=== PATIENT | male | born 1960 | race Caucasian/White ===

== ENCOUNTER 2018-07-14 18:18 | Emergency (ER) | payer OTHER ==
[~2018-07-14] VITALS: Ht 180.3 cm; Wt 115.5 kg
[~2018-07-14 18:18] MED LIST: /ESOM40CA OR; ACET65TA OR; ALBUTEROL INH; VENTAER INH; ZOCO40TA OR; aleve PO
[2018-07-14 18:19] VITALS: BP 141/84
[2018-07-14] MEDS ORDERED: VITA50005 PO (18:56)
[2018-07-14] MEDS ORDERED: NAPR-885 PO (18:56)
--- NOTE | 2018-07-14 18:59 | REP ---
Clinical: Trauma. Technique: Internal rotation, external rotation, and Y view of the left shoulder. Findings: Widening of the acromioclavicular joint appears relatively stable compared to the chest x-ray dated 2011. The subacromial space is normal. The glenohumeral joint is normal. There is no obvious acute fracture or dislocation. Surrounding soft tissues are unremarkable. Impression: No acute fracture or dislocation. Electronically Signed by Yonas Blankenship MD 07/14/2018 06:50 P
--- NOTE | 2018-07-14 19:00 | REP ---
Clinical: Left elbow trauma . Technique: AP, lateral, bilateral oblique views of the left elbow. Findings: No acute fracture or dislocation is appreciated. Joint spaces and surrounding soft tissues appear normal. Lateral view demonstrates normal positioning to the anterior and posterior fat pads without evidence for effusion/hemarthrosis. No subcutaneous emphysema or foreign body identified. Impression: Normal left elbow radiographs. Electronically Signed by Yonas Blankenship MD 07/14/2018 06:51 P
[2018-07-14] MEDS ORDERED: IBUP-1022 PO (19:42)
== END 2018-07-14 20:32 | disposition home or self-care (01) ==
LOC: M ED 18:18
DX: S50.02XA Contusion of left elbow, initial encounter (principal); W00.0XXA Fall on same level due to ice and snow, initial encounter; Y92.89 Other specified places as the place of occurrence of the external cause; Y99.0 Civilian activity done for income or pay; J45.909 Unspecified asthma, uncomplicated; Z79.899 Other long term (current) drug therapy; Z88.0 Allergy status to penicillin; Z88.8 Allergy status to other drugs, medicaments and biological substances

== ENCOUNTER 2018-10-19 09:05 | Emergency (ER) | payer OTHER ==
[~2018-10-19] VITALS: Ht 180.3 cm; Wt 110.2 kg
[~2018-10-19 09:05] MED LIST changes: -/ESOM40CA OR; +IBUP-1022 PO; +NAPR-885 PO; +NEXI1CAP3 OR; +VITA50005 PO
[2018-10-19] MEDS ORDERED: LISI-542 (09:19)
[2018-10-19] MEDS ORDERED: OMEP-221 (09:19)
[2018-10-19] MEDS ORDERED: PROP20TA72 (09:19)
[2018-10-19] MEDS ORDERED: SIMV20TA2 (09:19)
[2018-10-19] MEDS ORDERED: ONDANSETRON 4MG/2ML VIAL (J2405) IV ONE (10:00)
[2018-10-19] MEDS ORDERED: KETOROLAC 30 MG/ML VIAL (J1885) IV ONE (10:00)
[2018-10-19] MEDS ORDERED: NS 1,000 ML IV ONE (10:00)
[2018-10-19 10:02] LABS: BASO % 0.2 % (0.0-1.0); EOS # 0.1 10^3/uL (0.0-0.50); EOS % 0.8 % (0.0-3.0); HEMATOCRIT 43.9 % (42.0-52.0); HEMOGLOBIN 14.8 g/dl (13.5-17.5); LYMPH # 1.6 10^3/uL (1.5-4.5); LYMPH % 17.5 % (24.0-44.0); MEAN CORPUSCULAR HEMOGLOBIN 29.7 pg (27.0-33.0); MEAN CORPUSCULAR HGB CONC 33.7 g/dl (32.0-36.5); MONO # 0.5 10^3/uL (0.0-0.8); MONO % 5.8 % (0.0-5.0); NEUTROPHILS # 6.8 10^3/uL (1.8-7.7); NEUTROPHILS % 75.3 % (36.0-66.0); PLATELET COUNT, AUTOMATED 248 10^3/uL (150-450); RED BLOOD COUNT 4.99 10^6/uL (4.30-6.10)
[2018-10-19 10:31] LABS: ALBUMIN 3.7 GM/DL (3.2-5.2); ALT/SGPT 39 U/L (12-78); AMYLASE 27 U/L (25-115); BILIRUBIN,DIRECT < 0.1 MG/DL (0.0-0.2); BILIRUBIN,TOTAL 0.5 MG/DL (0.2-1.0); BLOOD UREA NITROGEN 12 MG/DL (7-18); CALCIUM LEVEL 9.2 MG/DL (8.5-10.1); CARBON DIOXIDE LEVEL 27 MEQ/L (21-32); CHLORIDE LEVEL 105 MEQ/L (98-107); CREATININE FOR GFR 0.92 MG/DL (0.70-1.30); GLOMERULAR FILTRATION RATE > 60.0 (>56); GLUCOSE, FASTING 115 MG/DL (70-100); LIPASE 93 U/L (73-393); POTASSIUM SERUM 4.4 MEQ/L (3.5-5.1); SODIUM LEVEL 139 MEQ/L (136-145)
[2018-10-19 10:55] LABS: CPK CREATINE PHOSPHOKINASE 288 U/L (39-308)
[2018-10-19 10:56] LABS: MB/CK RELATIVE INDEX 1.22 (< OR =4); TROPONIN I < 0.02 NG/ML (< 0.10)
--- NOTE | 2018-10-19 11:18 | REP ---
RIGHT UPPER QUADRANT ULTRASOUND: Real-time sonographic evaluation of the right upper quadrant performed. No gallstones are seen in the gallbladder. There is no gallbladder wall thickening or pericholecystic fluid. There is no intrahepatic or extrahepatic biliary dilatation, common bile duct measuring 5 mm. The liver demonstrates mild enlargement with diffuse increased heterogeneous echotexture compatible with diffuse fibrofatty infiltration. No gross liver or pancreatic mass is seen. The pancreas is not well seen due to overlying bowel gas. Right kidney demonstrates no hydronephrosis with normal size 12.4 cm in length. The length of the liver is approximately 21 cm in the midclavicular line. IMPRESSION: No gallstones, gallbladder wall thickening, pericholecystic fluid or biliary dilatation. Diffuse fibrofatty infiltration of the liver. Electronically Signed by Luiz Perez MD 10/24/2018 11:40 A
[2018-10-19 12:07] VITALS: BP 137/73
[2018-10-19] MEDS ORDERED: PROT20TA11 PO (12:08)
[2018-10-19] MEDS ORDERED: PEPC1TAB5 PO (12:08)
--- NOTE | 2018-10-19 12:12 | REP ---
CT ABDOMEN AND PELVIS WITHOUT CONTRAST: CT abdomen and pelvis performed without oral or IV contrast. Sagittal and coronal reconstruction images are performed. Visualized lung bases are clear. The liver demonstrates low density compatible with diffuse fatty infiltration. Spleen, adrenals, pancreas, and kidneys are grossly unremarkable. There is no evidence of renal or ureteral calculus bilaterally and no evidence of hydroureteronephrosis. There is mild atherosclerotic calcification of the abdominal aorta without aneurysm. There is no adenopathy. There is no free air or free fluid. I see no bowel wall thickening. There is no evidence of appendicitis. There is no pelvic mass. The urinary bladder is mildly distended and grossly unremarkable. IMPRESSION: No acute abnormality is detected. Electronically Signed by Luiz Perez MD 10/24/2018 11:40 A
--- NOTE | 2018-10-19 19:18 | ECGEPIP ---
Stationary ECG Study [facility] - ED Test Date: 2018-10-19 Pat Name: ASAD LARA Department: Room: - Gender: M [employer]: : 1960 Requested By: ARTI Hyman PA-C Order Number: [id number] Reading MD: Du Quezada Measurements Intervals [place] Rate: 58 P: 41 UT: 169 QRS: -28 QRSD: 80 T: 2 QT: 416 QTc: 412 Interpretive Statements SINUS BRADYCARDIA POSSIBLE LEFT ATRIAL ENLARGEMENT BORDERLINE LEFT AXIS DEVIATION INCOMPLETE RIGHT BUNDLE BRANCH BLOCK POSSIBLE LEFT VENTRICULAR HYPERTROPHY SIMILAR TO 10/16/11 Electronically Signed On 10-19-2018 19:18:22 EDT by Du Quezada
== END 2018-10-19 12:19 | disposition home or self-care (01) ==
LOC: M ED 09:05
DX: R10.13 Epigastric pain (principal); I45.10 Unspecified right bundle-branch block; K76.0 Fatty (change of) liver, not elsewhere classified; I10 Essential (primary) hypertension; K21.9 Gastro-esophageal reflux disease without esophagitis; M54.9 Dorsalgia, unspecified; J45.909 Unspecified asthma, uncomplicated; G25.0 Essential tremor; Z87.442 Personal history of urinary calculi; Z88.0 Allergy status to penicillin
CPT/HCPCS: 74176; 76705; 80048; 80076; 81001; 82150; 82550; 82553; 83690; 84484; 85025; 93005; 96361; 96374; 96375; 99284; J1885; J2405

== ENCOUNTER 2019-04-19 05:31 | Day surgery (SDC) | payer OTHER ==
[~2019-04-19] VITALS: Ht 208.3 cm; Wt 106.1 kg
[~2019-04-19 05:31] MED LIST changes: +LISI-542 PO; +OMEP-221 PO; +PEPC1TAB5 PO; +PROP20TA72 PO; +PROT20TA11 PO; +SIMV20TA2 PO
[2019-04-19] MEDS ORDERED: dexameTHASONE 10 MG/1 ML VIAL PRES.FREE (J1100) ONE (05:32)
[2019-04-19] MEDS ORDERED: ROPIvacaine 0.5% 30 ML INJECTION (J2795 PER 1MG) ONE (05:32)
[2019-04-19] MEDS ORDERED: EPINEPHrine INJ 1 MG/ML 1ML AMP ONE (05:32)
[2019-04-19] MEDS ORDERED: fentaNYL 100 MCG/2 ML INJECTION (J3010) IV SCH (06:00)
[2019-04-19] MEDS ORDERED: MIDAZOLAM INJ 2 MG/2 ML VIAL (J2250) As Ordered ONE (06:41)
[2019-04-19] MEDS ORDERED: fentaNYL 100 MCG/2 ML INJECTION (J3010) As Ordered ONE (06:41)
[2019-04-19] MEDS ORDERED: LIDOCAINE 1% SDV INJ 30 ML VIAL As Ordered ONE (06:55)
[2019-04-19] MEDS ORDERED: EPINEPHrine 1MG/ML INJ 30ML MD-VIAL As Ordered ONE (06:55)
[2019-04-19] MEDS ORDERED: LR 1,000 ML IV ONE (07:00)
[2019-04-19] MEDS ORDERED: CLINDAMYCIN 600 MG in IV 1 EA IV ONE (07:00)
[2019-04-19] MEDS ORDERED: ROCURONIUM BROMIDE 50 MG/5 ML VIAL As Ordered ONE (07:12)
[2019-04-19] MEDS ORDERED: LIDOCAINE 2% INJ 100 MG/5 ML SDV (FOR ANES.) As Ordered ONE (07:12)
[2019-04-19] MEDS ORDERED: PROPOFOL 200 MG/20 ML VIAL As Ordered ONE (07:12)
[2019-04-19] MEDS: MIDAZOLAM INJ 2 MG/2 ML VIAL (J2250) IV SCH ×2 (07:12→07:20)
[2019-04-19] MEDS ORDERED: fentaNYL 250 MCG/5 ML INJECTION (J3010) As Ordered ONE (07:12)
[2019-04-19] MEDS ORDERED: PHENYLephrine HCL 500 MCG/5 ML (100MCG/ML) SYRINGE (J2370) As Ordered ONE (08:01)
[2019-04-19] MEDS ORDERED: ePHEDrine SULFATE 25 MG/5 ML(5MG/ML) SYRINGE As Ordered ONE (08:05)
[2019-04-19] MEDS ORDERED: METOCLOPRAMIDE INJ 10MG/2ML VIAL (J2765) As Ordered ONE (08:06)
[2019-04-19] MEDS ORDERED: GLYCOPYRROLATE INJ 0.2 MG/ML 2 ML VIAL As Ordered ONE ×2 (08:19→09:20)
[2019-04-19] MEDS ORDERED: PHENYLEPHRINE INJ 10MG/ML VIAL (J2370) As Ordered ONE ×2 (08:42→08:44)
[2019-04-19] MEDS ORDERED: ONDANSETRON 4MG/2ML VIAL (J2405) As Ordered ONE ×2 (09:20→10:35)
[2019-04-19] MEDS ORDERED: NEOSTIGMINE 10 MG/10 ML VIAL (J2710) As Ordered ONE ×2 (09:20→09:21)
[2019-04-19] MEDS ORDERED: MORPHINE 4 MG/ML 1ML VIAL/SYRINGE (J2270) IV PRN (11:00)
[2019-04-19] MEDS ORDERED: METOCLOPRAMIDE INJ 10MG/2ML VIAL (J2765) IV PRN (11:00)
[2019-04-19] MEDS ORDERED: PERCOCET 5MG/325MG TAB PO PRN (11:00)
[2019-04-19] MEDS ORDERED: fentaNYL 100 MCG/2 ML INJECTION (J3010) IV PRN (11:00)
[2019-04-19] MEDS ORDERED: ONDANSETRON 4MG/2ML VIAL (J2405) IV PRN (11:00)
[2019-04-19] MEDS ORDERED: NORCO, ANEXSIA 5/325MG TABLET (HYDROcodone/ACETAMINOPHEN) PO PRN ×2 (11:00)
[2019-04-19] MEDS ORDERED: LR 1,000 ML IV SCH ×2 (11:00)
[2019-04-19 13:05] VITALS: BP 126/71
--- NOTE | 2019-04-19 14:28 | RO ---
DATE OF PROCEDURE: 04/19/2019 PREPROCEDURE DIAGNOSES: Left shoulder biceps subluxation, possible rotator cuff tear. POSTPROCEDURE DIAGNOSES: 1. Left shoulder rotator cuff tear, which is recurrent. 2. Left shoulder biceps subluxation. PROCEDURE: 1. Left shoulder arthroscopic revision rotator cuff repair using a SpeedBridge double row technique. 2. Left shoulder arthroscopic biceps tenotomy. 3. Left shoulder open Sub-pectoralis tenodesis of the biceps. SURGEON: Dr. Boogie Hernandez. GRADES 9 12 TUTOR: Mr. Freddie Preciado PA-C. ANESTHESIA: Left interscalene nerve block with a general endotracheal tube anesthetic. COMPLICATIONS: None. DESCRIPTION OF PROCEDURE: Antibiotics were given intravenously preoperatively and successful left interscalene nerve block was established. He was taken to the operating room where a general endotracheal tube anesthetic was then established. He was placed in the semi-beach chair position. The Venafi shoulder madden was utilized. His left shoulder was carefully prepped and draped in the usual sterile fashion. After appropriate time-out, routine diagnostic arthroscopy performed through a posterior portal. This revealed, in deed, that there appeared to be a rotator cuff tear above at the supraspinatus insertion. The biceps was flattened and clearly unstable. The subscapularis did appear to be intact and the preoperative holding area by examination. He had a negative liftoff test. But he had remarkably positive Speeds test. The rest of the rotator cuff intra-articularly appeared to be intact. The labrum was intact. The articular cartilage surfaces appeared to be intact. The biceps was tenotomized. I put a marking suture with O PDS suture using a spinal needle through the rotator cuff tear and pulled it out through the anterior working portal and placed the scope in the cervical medial space. We had excellent visualization. A bursectomy was performed. Debridement of the undersurface of the anterior lateral edge of the acromion or where the coracoacromial (CA) ligament attach was debrided and smoothed. Then the rotator cuff tear was readily identifiable. I denuded the rotator cuff insertion of the supraspinatus of any fibrillating soft tissues using a combination of the shaver a debrider device and the ring curet. Once I had adequate understanding of the nature and the anatomy of the rotator cuff tear, the 8.25 x 7 cm cannula was placed laterally and then we placed the first medial row anchor from the [employer] SpeedBridge kit and then docked the sutures anteriorly and passed the Swaged FiberTapes up through the rotator cuff out through the anterior working porthole and both of the eyelet sutures were passed as well more anteriorly. The posteromedial anchor was then placed and the Swaged on FiberTapes up through the rotator cuff, up through the anterior working portable and both of the eyelet sutures were passed as well more anteriorly. The posterior and medial anchor was then placed and the Swaged FiberTapes were passed up through the rotator cuff. The Swaged FiberTapes were released. Then one limb from the posteromedial anchor and one from the anterior medial anchor and one limb from the eyelet from the anterior anchor were passed out through the lateral cannula and loaded onto the first anterolateral row suture anchored, then the punch placed appropriately. The sutures were tensioned and the anchor dunked and secured providing excellent firm fixation. The sutures were cut short with the FiberTape cutter. The remaining three sutures were then grabbed out through the lateral portal. Punched hole placed appropriately. The sutures were loaded on the anchor then dunked into the hole and then secured thus providing excellent watertight closure of the rotator cuff with excellent secure fixation. Multiple photographs were taken to document this. We then made a small longitudinal incision in the anterior axillary fold. Bovie cautery was used to coagulate the crossing vessels. We identified the biceps tendon underneath the pectoralis tendon. Removed the biceps tendon and placed a Mitek suture anchor into the bicipital groove under direct visualization. I then sutured at the myotendinous junction one limb of the Mitek anchor suture and then cut the remaining portion of the tendon short and dunked the suture to the anchor and secured it with several alternating post half hitches. We copiously irrigated and closed the skin with a running #3-0 nylon suture. The arthroscopy portals were closed with #3-0 nylon sutures covered by Adaptic, dry sterile bulky dressings. He was placed in a abduction pillow brace and then awaked from general endotracheal anesthesia after having tolerating the procedure well and transferred to the recovery room in stable condition. There were no intraoperative complications. Mr. Freddie Preciado was critical to the success of this difficult surgery by helping with appropriate soft tissue retraction holding the scope, manipulating the sutures, closing the wound applying the brace amongst many other tasks to allow me to perform the operation smoothly, efficiency and safely.
== END 2019-04-19 13:05 | disposition home or self-care (01) ==
LOC: M SDC 05:31
PROVIDERS: ATTEND Orthopaedic Surgery
DX: S46.012A Strain of muscle(s) and tendon(s) of the rotator cuff of left shoulder, initial encounter (principal); M75.22 Bicipital tendinitis, left shoulder; I10 Essential (primary) hypertension; J45.909 Unspecified asthma, uncomplicated; E78.00 Pure hypercholesterolemia, unspecified; K21.9 Gastro-esophageal reflux disease without esophagitis; G47.30 Sleep apnea, unspecified; F43.10 Post-traumatic stress disorder, unspecified; Z79.899 Other long term (current) drug therapy; Z88.0 Allergy status to penicillin; Z88.8 Allergy status to other drugs, medicaments and biological substances; Y92.410 Unspecified street and highway as the place of occurrence of the external cause; Y93.9 Activity, unspecified
CPT/HCPCS: 23430; 29827; 64415; 88304; C1713; J1100; J2250; J2370; J2405; J2710; J2765; J2795; J3010

== ENCOUNTER → 2019-11-12 | Outpatient (CLI) | payer OTHER ==
[~2019-11-12] MED LIST changes: -SIMV20TA2 PO; +SIMV20TA22 PO
--- NOTE | 2019-11-13 11:35 | REP ---
REASON FOR EXAM: Malignant melanoma. There are no prior PET/CT for comparison. The only prior CT examination for review is dated 10/19/2018 and that examination is a noncontrast-enhanced examination of the abdomen and pelvis. The patient has a history of right inguinal sentinel lymph node excisional biopsy and right leg melanoma with wide local excision biopsy September 2019. After the intravenous administration of 8.89 millicuries of FDG18, triplane whole body PET/CT was performed from the skull base to the mid thigh. The non-corrected images whole body were also reviewed. There is no abnormal hypermetabolic activity seen in the neck, chest, abdomen or pelvis. The non-corrected images show a subtle focus of hypermetabolic activity seen in the skin left parasagittal location at the level of the xyphoid process of the sternum. This small focal area has an SUV value of 2.97 as a maximum. This is seen on both corrected and particularly, the non-corrected images. IMPRESSION: There is a hypermetabolic focus seen in the skin and/or subcutaneous region at the level of the xyphoid process of the sternum to the left of midline as described above. This needs to be evaluated clinically. Infectious versus inflammatory versus neoplastic change. Electronically Signed by Lul Logan DO 11/13/2019 12:24 P
== END ==
LOC: M PLARAD 11:43
PROVIDERS: ATTEND Family Medicine
DX: C49.21 Malignant neoplasm of connective and soft tissue of right lower limb, including hip (principal)
CPT/HCPCS: 78816; A9552

== ENCOUNTER → 2019-11-21 | Outpatient (CLI) | payer OTHER ==
[~2019-11-21] MED LIST changes: +PROHANCE 279.3MG/ML 15ML VIAL As Ordered ONE; +PROHANCE 279.3MG/ML 5ML VIAL As Ordered ONE
--- NOTE | 2019-11-21 10:20 | REP ---
MRI brain: 11/21/2019. Indication: Melanoma. Metastatic workup. Technique: Multiplanar short and long TR sequences of the brain were obtained including post gadolinium imaging. Comparison: 10/17/2011. Findings: There are no areas of restricted diffusion or pathologic gadolinium enhancement. There are a few foci of punctate elevated T2 signal within the cerebral hemisphere white matter which is nonspecific but likely represents early sequelae of chronic small vessel disease. There is no intracranial mass effect or hydrocephalous. No intracranial hemorrhage is present. The midline structures and craniocervical junction are unremarkable. The large intracranial flow voids are present. Left maxillary retention cyst is redemonstrated. Impression: No acute intracranial process or evidence of intracranial metastatic disease. 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 Left maxillary retention cyst. Electronically Signed by Ja Venegas DO 11/21/2019 10:12 A
== END ==
LOC: M RAD 07:07
PROVIDERS: ATTEND Family Medicine
DX: C43.9 Malignant melanoma of skin, unspecified (principal); J34.1 Cyst and mucocele of nose and nasal sinus
CPT/HCPCS: 70553; A9576

== ENCOUNTER → 2021-05-10 | Outpatient (CLI) | payer OTHER ==
[~2021-05-10] MED LIST changes: -LISI-542 PO; +LISI-898 PO; -PROHANCE 279.3MG/ML 15ML VIAL As Ordered ONE; -PROHANCE 279.3MG/ML 5ML VIAL As Ordered ONE
--- NOTE | 2021-05-12 09:21 | REP ---
INDICATION: Stage IIIA melanoma COMPARISON: 11/12/2019 TECHNIQUE: After the intravenous administration of 9.40 mCi of FDG 18 whole-body PET-CT was performed from the skull vertex to the bottom of the feet. NONCONTRAST HELICAL CT IMAGING WAS PERFORMED OVER THE SAME RANGE WITHOUT BREATH HOLD FOR ATTENUATION CORRECTION OF PET IMAGES AND ANATOMIC CORRELATION, BUT NOT FOR PRIMARY INTERPRETATION IT IS NOT OF STANDARD DIAGNOSTIC QUALITY. Both corrected and non corrected PET imaging was reviewed FINDINGS: There is hypermetabolic activity seen in the deep skin of the right ear with a maximal SUV value of 2.54. There is hypermetabolic activity seen in the skin of the left naris. There are no other areas of abnormal hypermetabolism. IMPRESSION: There is hypermetabolism in facial skin areas as described above likely secondary to local inflammation rather than neoplastic change. These areas need to be correlated clinically. The examination is otherwise negative. <Electronically signed by Lul Logan > 05/12/21 [id number]
== END ==
LOC: M PLARAD 12:55
PROVIDERS: ATTEND Internal Medicine
DX: C43.9 Malignant melanoma of skin, unspecified (principal)
CPT/HCPCS: 78816; A9552

== ENCOUNTER → 2021-06-23 | Outpatient (CLI) | payer OTHER ==
[~2021-06-23] MED LIST changes: -LISI-898 PO; +LISI5TAB11 PO
== END ==
LOC: M WUC 13:44
PROVIDERS: ATTEND Nurse Practitioner Family
DX: S23.41XA Sprain of ribs, initial encounter (principal); W18.30XA Fall on same level, unspecified, initial encounter; Y92.009 Unspecified place in unspecified non-institutional (private) residence as the place of occurrence of the external cause

== ENCOUNTER → 2022-01-21 | Outpatient (CLI) | payer OTHER ==
[~2022-01-21] MED LIST changes: +ALLO300T2; +COLC0.6T47; +ERGO500029; +GASTROGRAFIN SOLUTION 30ML (Q9963) As Ordered ONE; +ISOVUE-370 76% 100ML VIAL As Ordered ONE; -OMEP-221 PO; +OMEP40CA5 PO
== END ==
LOC: M RAD 07:57
PROVIDERS: ATTEND Internal Medicine
DX: C43.9 Malignant melanoma of skin, unspecified (principal)
CPT/HCPCS: 71260; 74177; Q9963; Q9967

== ENCOUNTER → 2022-07-27 | Outpatient (CLI) | payer OTHER ==
[~2022-07-27] MED LIST changes: -GASTROGRAFIN SOLUTION 30ML (Q9963) As Ordered ONE; +GASTROGRAFIN SOLUTION 30ML As Ordered ONE
== END ==
LOC: M RAD 09:15
PROVIDERS: ATTEND Internal Medicine
DX: C43.9 Malignant melanoma of skin, unspecified (principal)

== ENCOUNTER → 2023-01-18 | Outpatient (CLI) | payer OTHER | LOC: M RAD 11:36 | PROVIDERS: ATTEND Internal Medicine Hematology & Oncology | DX: C43.9 Malignant melanoma of skin, unspecified (principal) ==

== ENCOUNTER 2023-06-29 09:35 | Day surgery (SDC) | payer OTHER ==
[~2023-06-29] VITALS: Ht 180.3 cm; Wt 116.1 kg
[~2023-06-29 09:35] MED LIST changes: +ACET1TAB37 PO; -ALLO300T2; +ALLO300T2 PO; +BSS IRRIG/VANCO(10MG)/TOBRA(5MG)/EPINEPH(1:1000-0.5CC)500ML BAG-ORONLY IR ONE; +CEFUROXIME 1MG/0.1ML INTRACAMERAL INJ As Ordered ONE; -COLC0.6T47; +COLC0.6T47 PO; +CYCLOPENTOLATE 1% OPHTH SOLN 2ML BTL OS SCH; -GASTROGRAFIN SOLUTION 30ML As Ordered ONE; -ISOVUE-370 76% 100ML VIAL As Ordered ONE; +LIDOCAINE 1% SDV 5ML VIAL As Ordered ONE; +LIDOCAINE 3.5 % 1ML OPHTH TOPICAL GEL OU ONE; +MIDAZOLAM INJ 2MG/2ML VIAL As Ordered ONE; +OFLOXACIN 0.3 % (OCUFLOX) OPTH SOL 5ML OS ONE; +PHENYLEPHRINE 10% OPHTH SOL 5ML OS PRN; +PHENYLEPHRINE 2.5% OPHTH SOL 2ML OS SCH; +TROPICAMIDE 1% OPHTH SOLN 15ML OS SCH; +fentaNYL 100 MCG/2 ML INJECTION As Ordered ONE
[2023-06-29] MEDS ORDERED: PROVISC 10 MG/ML 0.85ML SYRINGE As Ordered ONE (11:59)
[2023-06-29 12:15] VITALS: BP 168/95; TEMP 97.9; O2SAT 95
== END 2023-06-29 12:41 | disposition home or self-care (01) ==
LOC: M SDC 09:35
PROVIDERS: ATTEND Ophthalmology
DX: H25.12 Age-related nuclear cataract, left eye (principal); H40.9 Unspecified glaucoma; H27.8 Other specified disorders of lens; I10 Essential (primary) hypertension; J45.909 Unspecified asthma, uncomplicated; E78.00 Pure hypercholesterolemia, unspecified; G47.30 Sleep apnea, unspecified; M10.9 Gout, unspecified; K21.9 Gastro-esophageal reflux disease without esophagitis; Z79.899 Other long term (current) drug therapy; Z88.0 Allergy status to penicillin; Z88.8 Allergy status to other drugs, medicaments and biological substances
CPT/HCPCS: 66982; J2250; J3010; V2632

== ENCOUNTER → 2023-07-13 | Outpatient (CLI) | payer OTHER ==
[~2023-07-13] MED LIST changes: -BSS IRRIG/VANCO(10MG)/TOBRA(5MG)/EPINEPH(1:1000-0.5CC)500ML BAG-ORONLY IR ONE; -CEFUROXIME 1MG/0.1ML INTRACAMERAL INJ As Ordered ONE; +CIPR0.3S37; +COMB0.2S OP; -CYCLOPENTOLATE 1% OPHTH SOLN 2ML BTL OS SCH; +ESOM40CA35; +ISOVUE-370 76% 100ML VIAL ONE; -LIDOCAINE 1% SDV 5ML VIAL As Ordered ONE; -LIDOCAINE 3.5 % 1ML OPHTH TOPICAL GEL OU ONE; -MIDAZOLAM INJ 2MG/2ML VIAL As Ordered ONE; -OFLOXACIN 0.3 % (OCUFLOX) OPTH SOL 5ML OS ONE; -PHENYLEPHRINE 10% OPHTH SOL 5ML OS PRN; -PHENYLEPHRINE 2.5% OPHTH SOL 2ML OS SCH; +PREDOPD; -TROPICAMIDE 1% OPHTH SOLN 15ML OS SCH; -fentaNYL 100 MCG/2 ML INJECTION As Ordered ONE
== END ==
LOC: M PLAIMG 07:26
PROVIDERS: ATTEND Dermatology
DX: Z85.89 Personal history of malignant neoplasm of other organs and systems (principal)

== ENCOUNTER → 2023-07-26 | Outpatient (CLI) | payer OTHER ==
[~2023-07-26] MED LIST changes: -ISOVUE-370 76% 100ML VIAL ONE; +LIDOCAINE 1% MDV 20ML VIAL As Ordered ONE
[2023-07-26 13:12] VITALS: TEMP 99.1
[2023-07-26 13:37] VITALS: BP 147/94; O2SAT 95
== END ==
LOC: M IRPRO 12:16
PROVIDERS: ATTEND Internal Medicine Hematology & Oncology
DX: C77.4 Secondary and unspecified malignant neoplasm of inguinal and lower limb lymph nodes (principal); C43.9 Malignant melanoma of skin, unspecified

== ENCOUNTER → 2023-08-07 | Outpatient (CLI) | payer OTHER ==
[~2023-08-07] MED LIST changes: -LIDOCAINE 1% MDV 20ML VIAL As Ordered ONE
== END ==
LOC: M PLARAD 12:06
PROVIDERS: ATTEND Dermatology
DX: R93.89 Abnormal findings on diagnostic imaging of other specified body structures (principal); R59.0 Localized enlarged lymph nodes
CPT/HCPCS: 78816; A9552

== ENCOUNTER 2023-08-23 06:30 | Day surgery (SDC) | payer OTHER ==
[~2023-08-23] VITALS: Ht 180.3 cm; Wt 117.0 kg
[~2023-08-23 06:30] MED LIST changes: -COMB0.2S OP; +COMB0.2S OS; -ESOM40CA35; +ESOM40CA35 PO
[2023-08-23] MEDS ORDERED: fentaNYL 100 MCG/2 ML INJECTION As Ordered ONE (09:15)
[2023-08-23] MEDS ORDERED: MIDAZOLAM INJ 2MG/2ML VIAL As Ordered ONE (09:15)
[2023-08-23] MEDS ORDERED: propofoL 200 MG/20 ML VIAL As Ordered ONE (09:15)
[2023-08-23] MEDS ORDERED: KETOROLAC 60MG 2ML VIAL As Ordered ONE (09:15)
[2023-08-23] MEDS: LIDOCAINE 1% SDV 30ML VIAL As Ordered ONE (09:15)
[2023-08-23] MEDS ORDERED: LIDOCAINE 2% 100MG/5ML SDV (FOR ANES.) As Ordered ONE (09:15)
[2023-08-23] MEDS ORDERED: ONDANSETRON 4MG 2ML VIAL As Ordered ONE (09:15)
[2023-08-23] MEDS: HEPARIN SOD (PORCINE) 5000UNITS/ML 1ML VIAL/SYRINGE As Ordered ONE (09:16)
[2023-08-23] MEDS: ceFAZolin SOD 2 GM in IV 1 EA IV ONE (09:45)
[2023-08-23] MEDS ORDERED: ACETAMINOPHEN 1000MG 100ML IV BAG As Ordered ONE (10:18)
[2023-08-23] MEDS ORDERED: ONDANSETRON 4MG 2ML VIAL IV PRN (10:30)
[2023-08-23] MEDS ORDERED: NS 1,000 ML IV SCH (10:50)
[2023-08-23 11:10] VITALS: BP 136/81; TEMP 97.5; O2SAT 96
== END 2023-08-23 11:45 | disposition home or self-care (01) ==
LOC: M SDC 06:30
PROVIDERS: ATTEND Surgery
DX: C43.9 Malignant melanoma of skin, unspecified (principal); F43.10 Post-traumatic stress disorder, unspecified; G47.30 Sleep apnea, unspecified; Z88.0 Allergy status to penicillin; Z88.8 Allergy status to other drugs, medicaments and biological substances; Z79.899 Other long term (current) drug therapy
CPT/HCPCS: 36561; 71045; 76000; C1788; J0131; J0665; J0690; J1100; J1885; J2250; J2405; J3010

== ENCOUNTER → 2023-09-05 | Outpatient (CLI) | payer OTHER ==
[~2023-09-05] MED LIST changes: +LIDO1KIT9 TOP
== END ==
LOC: M ONCR 10:09
PROVIDERS: ATTEND General Practice
DX: C43.71 Malignant melanoma of right lower limb, including hip (principal); C43.59 Malignant melanoma of other part of trunk; Z79.51 Long term (current) use of inhaled steroids; Z79.899 Other long term (current) drug therapy; Z88.0 Allergy status to penicillin; Z88.8 Allergy status to other drugs, medicaments and biological substances

== ENCOUNTER 2023-10-04 13:42 | Inpatient (IN) | payer OTHER ==
[~2023-10-04] VITALS: Ht 180.3 cm; Wt 105.6 kg
[2023-10-04] MEDS: SODIUM CHLORIDE 0.9% INJ 10 ML SYR IV SCH (09:00)
[~2023-10-04 13:42] MED LIST changes: +BENA25CA4 PO; +CLAR10CA3 PO; -ERGO500029; +ERGO500029 PO; +MOME0.1C3 TOP; +PRED50TA PO
[2023-10-04 14:49] LABS: VENOUS BASE EXCESS -5.9 (-2.0-2.0); VENOUS HCO3 19.5 MMOL/L (23.0-27.0); VENOUS PARTIAL PRESSURE CO2 38.1 mmHg (38.0-50.0); VENOUS PARTIAL PRESSURE O2 88.8 mmHg (30.0-50.0); VENOUS PH 7.326 UNITS (7.330-7.430); VENOUS STANDARD HCO3 19.7 MMOL/L; VENOUS TOTAL CO2 20.6 MMOL/L (24.0-28.0)
[2023-10-04 14:58] LABS: BASO # 0.1 10^3/uL (0.0-0.2); BASO % 0.6 % (0.0-1.0); EOS # 0.1 10^3/uL (0.0-0.5); EOS % 1.1 % (0.0-3.0); HEMATOCRIT 41.4 % (42.0-52.0); HEMOGLOBIN 14.8 g/dl (13.5-17.5); LYMPH # 1.3 10^3/uL (1.5-5.0); LYMPH % 16.1 % (24.0-44.0); MEAN CORPUSCULAR HEMOGLOBIN 29.5 pg (27.0-33.0); MEAN CORPUSCULAR HGB CONC 35.7 g/dl (32.0-36.5); MEAN CORPUSCULAR VOLUME 82.5 fl (80.0-96.0); MONO # 0.2 10^3/uL (0.0-0.8); MONO % 2.5 % (2.0-8.0); NEUTROPHILS # 6.4 10^3/uL (1.5-8.5); NEUTROPHILS % 79.1 % (36.0-66.0); PLATELET COUNT, AUTOMATED 243 10^3/uL (150-450); RED BLOOD COUNT 5.02 10^6/uL (4.30-6.10); WHITE BLOOD COUNT 8.1 10^3/uL (4.0-10.0)
[2023-10-04 15:15] LABS: HEMOGLOBIN A1c 7.5 % (4.0-6.0)
[2023-10-04 15:21] LABS: LIPASE 171 U/L (12-53)
[2023-10-04 15:22] LABS: ACETONE/KETONE 3.05 MMOL/L (0.02-0.27)
[2023-10-04 15:28] LABS: ALBUMIN 3.6 G/DL (3.2-5.2); ALKALINE PHOSPHATASE 78 U/L (46-116); ALT/SGPT 53 U/L (7.0-40); AST/SGOT 24 U/L (<34); BILIRUBIN,DIRECT 0.2 MG/DL (<0.4); BILIRUBIN,TOTAL 0.6 MG/DL (0.3-1.2); BLOOD UREA NITROGEN 32 MG/DL (9-23); CALCIUM LEVEL 9.2 MG/DL (8.3-10.6); CARBON DIOXIDE LEVEL 23 MMOL/L (20-31); CHLORIDE LEVEL 92 MMOL/L (98-107); CREATININE FOR GFR 0.84 MG/DL (0.70-1.30); GLOMERULAR FILTRATION RATE > 60.0 (>49); GLUCOSE, FASTING 611 MG/DL (74-106); MAGNESIUM LEVEL 2.1 MG/DL (1.8-2.4); POTASSIUM SERUM 5.6 MMOL/L (3.5-5.1); SODIUM LEVEL 126 MMOL/L (136-145); TOTAL PROTEIN 6.9 G/DL (5.7-8.2)
[2023-10-04] MEDS: HumuLIN R (REGULAR) INSULIN (NovoLIN R) **100U/ML** PER UNIT IV ONE ×2 (16:06→18:33)
[2023-10-04] MEDS: NS 1,000 ML IV ONE ×2 (16:06→18:32)
[2023-10-04] MEDS ORDERED: HumuLIN R (REGULAR) INSULIN (NovoLIN R) **100U/ML** PER UNIT IV ONE (17:20)
[2023-10-04] MEDS ORDERED: DEXTROSE 50% 50ML SYRINGE IV PRN (18:05)
[2023-10-04] MEDS ORDERED: GLUCAGON INJ 1MG VIAL SC PRN (18:05)
[2023-10-04] MEDS ORDERED: GLUCOSE 4 GM CHEW PO PRN (18:05)
[2023-10-04] MEDS ORDERED: XALA0.007 OS (18:13)
[2023-10-04] MEDS ORDERED: BRIM5DRO4 OS (18:13)
[2023-10-04] MEDS ORDERED: ALLO100T PO (18:13)
[2023-10-04] MEDS ORDERED: HOME MED LIST COMPLETE! XX SCH (18:15)
[2023-10-04] MEDS: NS 1,000 ML IV SCH (18:33)
[2023-10-04 20:56] LABS: BLOOD UREA NITROGEN 33 MG/DL (9-23); CARBON DIOXIDE LEVEL 22 MMOL/L (20-31); CHLORIDE LEVEL 100 MMOL/L (98-107); CREATININE FOR GFR 0.83 MG/DL (0.70-1.30); GLOMERULAR FILTRATION RATE > 60.0 (>49); GLUCOSE, FASTING 428 MG/DL (74-106); POTASSIUM SERUM 4.9 MMOL/L (3.5-5.1); SODIUM LEVEL 135 MMOL/L (136-145)
[2023-10-04] MEDS: DOCUSATE SODIUM 100MG CAPSULE PO SCH (21:00)
[2023-10-04] MEDS: ACETAMINOPHEN 500 MG TAB PO SCH (21:38)
[2023-10-04] MEDS: INSULIN LISPRO (NovoLOG) PER UNIT SC SCH (21:39)
[2023-10-04] MEDS: LEVEMIR (INSULIN DETEMIR) 1 UNITS/0.01ML SC SCH (21:40)
[2023-10-04 23:15] VITALS: BP 156/78; TEMP 98.1; O2SAT 95
[2023-10-05] MEDS: INSULIN LISPRO (NovoLOG) PER UNIT SC ONE ×2 (00:58→18:57)
[2023-10-05 01:09] LABS: VENOUS BASE EXCESS -6.9 (-2.0-2.0); VENOUS HCO3 18.1 MMOL/L (23.0-27.0); VENOUS O2 SATURATION 98.3 % (60.0-80.0); VENOUS PH 7.332 UNITS (7.330-7.430); VENOUS STANDARD HCO3 18.9 MMOL/L; VENOUS TOTAL CO2 19.2 MMOL/L (24.0-28.0)
[2023-10-05 01:27] LABS: BASO % 0.4 % (0.0-1.0); EOS % 0.1 % (0.0-3.0); HEMATOCRIT 37.1 % (42.0-52.0); HEMOGLOBIN 13.1 g/dl (13.5-17.5); LYMPH # 1.5 10^3/uL (1.5-5.0); LYMPH % 13.5 % (24.0-44.0); MEAN CORPUSCULAR HEMOGLOBIN 28.7 pg (27.0-33.0); MEAN CORPUSCULAR HGB CONC 35.3 g/dl (32.0-36.5); MEAN CORPUSCULAR VOLUME 81.4 fl (80.0-96.0); MONO # 0.5 10^3/uL (0.0-0.8); MONO % 4.7 % (2.0-8.0); NEUTROPHILS # 9.2 10^3/uL (1.5-8.5); NEUTROPHILS % 80.8 % (36.0-66.0); PLATELET COUNT, AUTOMATED 249 10^3/uL (150-450); RED BLOOD COUNT 4.56 10^6/uL (4.30-6.10); WHITE BLOOD COUNT 11.4 10^3/uL (4.0-10.0)
[2023-10-05 01:40] LABS: ACETONE/KETONE 2.65 MMOL/L (0.02-0.27)
[2023-10-05 02:06] LABS: ALBUMIN 3.2 G/DL (3.2-5.2); ALKALINE PHOSPHATASE 66 U/L (46-116); ALT/SGPT 47 U/L (7.0-40); AST/SGOT 20 U/L (<34); BILIRUBIN,TOTAL 0.5 MG/DL (0.3-1.2); BLOOD UREA NITROGEN 34 MG/DL (9-23); CALCIUM LEVEL 8.5 MG/DL (8.3-10.6); CARBON DIOXIDE LEVEL 21 MMOL/L (20-31); CHLORIDE LEVEL 97 MMOL/L (98-107); CREATININE FOR GFR 0.86 MG/DL (0.70-1.30); GLOMERULAR FILTRATION RATE > 60.0 (>49); GLUCOSE, FASTING 493 MG/DL (74-106); MAGNESIUM LEVEL 1.8 MG/DL (1.8-2.4); PHOSPHORUS LEVEL 4.7 MG/DL (2.4-5.1); POTASSIUM SERUM 5.1 MMOL/L (3.5-5.1); SODIUM LEVEL 128 MMOL/L (136-145); TOTAL PROTEIN 6.1 G/DL (5.7-8.2)
[2023-10-05] MEDS: HumuLIN R (REGULAR) INSULIN (NovoLIN R) **100U/ML** PER UNIT IV ONE (02:25)
[2023-10-05] MEDS: HumuLIN R (REGULAR) INSULIN (NovoLIN R) **100U/ML** PER UNIT IV STA (05:11)
[2023-10-05 05:50] LABS: BASO % 0.3 % (0.0-1.0); EOS % 0.1 % (0.0-3.0); HEMATOCRIT 36.2 % (42.0-52.0); HEMOGLOBIN 12.9 g/dl (13.5-17.5); LYMPH # 1.9 10^3/uL (1.5-5.0); MEAN CORPUSCULAR HEMOGLOBIN 29.2 pg (27.0-33.0); MEAN CORPUSCULAR HGB CONC 35.6 g/dl (32.0-36.5); MEAN CORPUSCULAR VOLUME 81.9 fl (80.0-96.0); MONO # 0.8 10^3/uL (0.0-0.8); MONO % 7.5 % (2.0-8.0); NEUTROPHILS # 7.7 10^3/uL (1.5-8.5); NEUTROPHILS % 73.5 % (36.0-66.0); PLATELET COUNT, AUTOMATED 227 10^3/uL (150-450); RED BLOOD COUNT 4.42 10^6/uL (4.30-6.10); WHITE BLOOD COUNT 10.4 10^3/uL (4.0-10.0)
[2023-10-05 05:57] VITALS: BP 149/78; TEMP 97.9; O2SAT 94
[2023-10-05 06:02] LABS: INR 1.02; PARTIAL THROMBOPLASTIN TIME 23.1 SECONDS (24.8-34.2); PROTHROMBIN TIME 13.1 SECONDS (12.5-14.5)
[2023-10-05 06:17] LABS: MAGNESIUM LEVEL 1.9 MG/DL (1.8-2.4)
[2023-10-05 06:18] LABS: ACETONE/KETONE 1.41 MMOL/L (0.02-0.27)
[2023-10-05 06:21] LABS: BLOOD UREA NITROGEN 32 MG/DL (9-23); CALCIUM LEVEL 8.8 MG/DL (8.3-10.6); CARBON DIOXIDE LEVEL 23 MMOL/L (20-31); CHLORIDE LEVEL 99 MMOL/L (98-107); CREATININE FOR GFR 0.81 MG/DL (0.70-1.30); FREE T3 2.4 PG/ML (2.3-4.2); FREE T4 2.29 NG/DL (0.89-1.76); GLOMERULAR FILTRATION RATE > 60.0 (>49); GLUCOSE, FASTING 373 MG/DL (74-106); POTASSIUM SERUM 4.3 MMOL/L (3.5-5.1); SODIUM LEVEL 132 MMOL/L (136-145)
[2023-10-05 06:27] LABS: THYROID STIMULATING HORMONE 0.015 uIU/ML (0.55-4.78)
[2023-10-05] MEDS: RIVAROXABAN 10MG TAB (XARELTO) PO SCH (08:00)
[2023-10-05] MEDS: LEVEMIR (INSULIN DETEMIR) 1 UNITS/0.01ML SC SCH ×2 (08:38→20:41)
[2023-10-05] MEDS: INSULIN LISPRO (NovoLOG) PER UNIT SC SCH (08:39)
[2023-10-05 14:15] VITALS: BP 146/78; TEMP 97.9; O2SAT 94
[2023-10-05 22:00] VITALS: BP 148/86; TEMP 97.9; O2SAT 96
[2023-10-06 05:38] LABS: BASO % 0.6 % (0.0-1.0); EOS # 0.2 10^3/uL (0.0-0.5); EOS % 3.9 % (0.0-3.0); HEMATOCRIT 33.8 % (42.0-52.0); HEMOGLOBIN 12.2 g/dl (13.5-17.5); LYMPH # 1.7 10^3/uL (1.5-5.0); LYMPH % 32.4 % (24.0-44.0); MEAN CORPUSCULAR HEMOGLOBIN 29.1 pg (27.0-33.0); MEAN CORPUSCULAR HGB CONC 36.1 g/dl (32.0-36.5); MEAN CORPUSCULAR VOLUME 80.7 fl (80.0-96.0); MONO # 0.5 10^3/uL (0.0-0.8); MONO % 9.3 % (2.0-8.0); NEUTROPHILS # 2.9 10^3/uL (1.5-8.5); NEUTROPHILS % 53.2 % (36.0-66.0); PLATELET COUNT, AUTOMATED 191 10^3/uL (150-450); RED BLOOD COUNT 4.19 10^6/uL (4.30-6.10); WHITE BLOOD COUNT 5.4 10^3/uL (4.0-10.0)
[2023-10-06 06:02] LABS: BLOOD UREA NITROGEN 16 MG/DL (9-23); CALCIUM LEVEL 8.1 MG/DL (8.3-10.6); CARBON DIOXIDE LEVEL 27 MMOL/L (20-31); CHLORIDE LEVEL 102 MMOL/L (98-107); CREATININE FOR GFR 0.63 MG/DL (0.70-1.30); GLOMERULAR FILTRATION RATE > 60.0 (>49); GLUCOSE, FASTING 247 MG/DL (74-106); POTASSIUM SERUM 3.6 MMOL/L (3.5-5.1); SODIUM LEVEL 135 MMOL/L (136-145)
[2023-10-06 06:29] VITALS: BP 147/86; TEMP 98.1; O2SAT 95
[2023-10-06] MEDS: INSULIN LISPRO (NovoLOG) PER UNIT SC SCH ×2 (08:19→08:20)
[2023-10-06] MEDS ORDERED: PROHANCE 279.3MG/ML 15ML VIAL As Ordered ONE (08:26)
[2023-10-06 08:36] LABS: FREE T3 2.4 PG/ML (2.3-4.2); FREE T4 1.87 NG/DL (0.89-1.76)
[2023-10-06 08:37] LABS: THYROID STIMULATING HORMONE 0.017 uIU/ML (0.55-4.78)
[2023-10-06 14:00] VITALS: BP 144/84; TEMP 97.2; O2SAT 96
[2023-10-06 20:00] VITALS: BP 148/86; TEMP 98.1; O2SAT 96
[2023-10-06] MEDS: BRIMONIDINE 0.1% OPHTH SOLN 5ML OS SCH (21:00)
[2023-10-06] MEDS: TIMOLOL MALEATE 0.5% OPHTH SOLN 5 ML OS SCH (21:00)
[2023-10-06] MEDS: LATANOPROST 0.005% OPHTH SOLN 2.5 ML OS SCH (21:00)
[2023-10-07 06:09] VITALS: BP 146/83; TEMP 97.7; O2SAT 96
[2023-10-07 06:44] LABS: BASO % 0.5 % (0.0-1.0); EOS # 0.3 10^3/uL (0.0-0.5); EOS % 5.2 % (0.0-3.0); HEMATOCRIT 36.3 % (42.0-52.0); LYMPH # 1.9 10^3/uL (1.5-5.0); LYMPH % 32.5 % (24.0-44.0); MEAN CORPUSCULAR HEMOGLOBIN 29.3 pg (27.0-33.0); MEAN CORPUSCULAR HGB CONC 35.8 g/dl (32.0-36.5); MEAN CORPUSCULAR VOLUME 81.9 fl (80.0-96.0); MONO # 0.5 10^3/uL (0.0-0.8); NEUTROPHILS % 51.8 % (36.0-66.0); PLATELET COUNT, AUTOMATED 215 10^3/uL (150-450); RED BLOOD COUNT 4.43 10^6/uL (4.30-6.10); WHITE BLOOD COUNT 5.8 10^3/uL (4.0-10.0)
[2023-10-07 07:16] LABS: BLOOD UREA NITROGEN 10 MG/DL (9-23); CARBON DIOXIDE LEVEL 29 MMOL/L (20-31); CHLORIDE LEVEL 101 MMOL/L (98-107); CREATININE FOR GFR 0.64 MG/DL (0.70-1.30); GLOMERULAR FILTRATION RATE > 60.0 (>49); GLUCOSE, FASTING 210 MG/DL (74-106); POTASSIUM SERUM 3.9 MMOL/L (3.5-5.1); SODIUM LEVEL 137 MMOL/L (136-145)
[2023-10-07] MEDS: INSULIN LISPRO (NovoLOG) PER UNIT SC SCH ×2 (08:20→08:21)
[2023-10-07] MEDS ORDERED: LANTINJ4 SC (10:46)
[2023-10-07] MEDS ORDERED: ADME100I2 SC (10:46)
[2023-10-07] MEDS ORDERED: LANC30MI XX (10:47)
[2023-10-07] MEDS ORDERED: GLUC1TES2 XX (10:47)
[2023-10-07] MEDS ORDERED: BLOOKIT21 XX (10:47)
[2023-10-07] MEDS ORDERED: PEN-61 SC (10:47)
[2023-10-07] MEDS ORDERED: ALCOPAD25 TOP (10:47)
[2023-10-07] MEDS ORDERED: NOVOINJ3 SC (11:22)
[2023-10-07] MEDS ORDERED: HUMA100I5 SC (11:24)
[2023-10-07] MEDS ORDERED: INSULIN LISPRO (NovoLOG) PER UNIT SC SCH (12:00)
[2023-10-07 14:00] VITALS: BP 145/82; TEMP 97.9; O2SAT 93
[2023-10-07] MEDS: ACETAMINOPHEN TAB 650MG DOSE (2X325MG) PO ONE (18:24)
[2023-10-08 06:00] VITALS: BP 150/80; TEMP 97.9; O2SAT 96
[2023-10-08 06:33] LABS: BASO % 0.6 % (0.0-1.0); EOS # 0.4 10^3/uL (0.0-0.5); EOS % 6.5 % (0.0-3.0); HEMATOCRIT 37.7 % (42.0-52.0); HEMOGLOBIN 13.1 g/dl (13.5-17.5); LYMPH # 2.1 10^3/uL (1.5-5.0); LYMPH % 31.7 % (24.0-44.0); MEAN CORPUSCULAR HEMOGLOBIN 28.4 pg (27.0-33.0); MEAN CORPUSCULAR HGB CONC 34.7 g/dl (32.0-36.5); MEAN CORPUSCULAR VOLUME 81.8 fl (80.0-96.0); MONO # 0.6 10^3/uL (0.0-0.8); MONO % 8.5 % (2.0-8.0); NEUTROPHILS # 3.4 10^3/uL (1.5-8.5); NEUTROPHILS % 51.2 % (36.0-66.0); PLATELET COUNT, AUTOMATED 205 10^3/uL (150-450); RED BLOOD COUNT 4.61 10^6/uL (4.30-6.10); WHITE BLOOD COUNT 6.6 10^3/uL (4.0-10.0)
[2023-10-08 07:06] LABS: BLOOD UREA NITROGEN 10 MG/DL (9-23); CALCIUM LEVEL 8.2 MG/DL (8.3-10.6); CARBON DIOXIDE LEVEL 30 MMOL/L (20-31); CHLORIDE LEVEL 102 MMOL/L (98-107); CREATININE FOR GFR 0.71 MG/DL (0.70-1.30); GLOMERULAR FILTRATION RATE > 60.0 (>49); GLUCOSE, FASTING 201 MG/DL (74-106); SODIUM LEVEL 138 MMOL/L (136-145)
== END 2023-10-08 10:41 | disposition home or self-care (01) | DRG 638 ==
LOC: M ED 13:42 → M ED INP 17:40 → ENRESERV 22:28 → M MSPAV 23:15
PROVIDERS: ADMIT Internal Medicine Nephrology; ATTEND Internal Medicine Nephrology
DX: E09.00 Drug or chemical induced diabetes mellitus with hyperosmolarity without nonketotic hyperglycemic-hyperosmolar coma (NKHHC) (principal); C77.4 Secondary and unspecified malignant neoplasm of inguinal and lower limb lymph nodes; E87.1 Hypo-osmolality and hyponatremia; C79.51 Secondary malignant neoplasm of bone; C43.71 Malignant melanoma of right lower limb, including hip; K21.9 Gastro-esophageal reflux disease without esophagitis; T45.1X5A Adverse effect of antineoplastic and immunosuppressive drugs, initial encounter; E78.1 Pure hyperglyceridemia; E78.5 Hyperlipidemia, unspecified; M10.9 Gout, unspecified; J45.909 Unspecified asthma, uncomplicated; E87.5 Hyperkalemia; F43.10 Post-traumatic stress disorder, unspecified; E86.0 Dehydration; E05.90 Thyrotoxicosis, unspecified without thyrotoxic crisis or storm; I95.1 Orthostatic hypotension; Z79.899 Other long term (current) drug therapy; Z88.0 Allergy status to penicillin; Z88.8 Allergy status to other drugs, medicaments and biological substances; Z79.69 Long term (current) use of other immunomodulators and immunosuppressants

== ENCOUNTER → 2023-10-23 | Outpatient (CLI) | payer OTHER ==
[~2023-10-23] MED LIST changes: +ADME100I2 SC; +ALCOPAD25 TOP; +ALLO100T PO; +BLOOKIT21 XX; +BRIM5DRO4 OS; +GLUC1TES2 XX; +HUMA100I5 SC; +LANC30MI XX; +LANTINJ4 SC; +NOVOINJ3 SC; +PEN-61 SC; +XALA0.007 OS
== END ==
LOC: M PLARAD 08:23
PROVIDERS: ATTEND Internal Medicine Hematology & Oncology
DX: C43.9 Malignant melanoma of skin, unspecified (principal)
CPT/HCPCS: 78816; A9552

== ENCOUNTER → 2023-11-03 | Outpatient (REF) | payer OTHER ==
[2023-11-03 15:42] LABS: LIPASE 118 U/L (12-53)
[2023-11-03 15:44] LABS: AMYLASE 78 U/L (30-118)
== END ==
LOC: M LAB REF 14:37
PROVIDERS: ATTEND Nurse Practitioner Family
DX: E09.9 Drug or chemical induced diabetes mellitus without complications (principal)

== ENCOUNTER → 2023-11-21 | Outpatient (REF) | payer OTHER ==
[2023-11-21 14:05] LABS: BLOOD UREA NITROGEN 18 MG/DL (9-23); CREATININE FOR GFR 1.01 MG/DL (0.70-1.30); GLOMERULAR FILTRATION RATE > 60.0 (>49)
== END ==
LOC: M LAB REF 12:39
PROVIDERS: ATTEND Student in an Organized Health Care Education/Training Program
DX: C43.9 Malignant melanoma of skin, unspecified (principal)

== ENCOUNTER → 2023-11-23 | Outpatient (CLI) | payer OTHER ==
[~2023-11-23] MED LIST changes: +GASTROGRAFIN SOLUTION 30ML As Ordered ONE; +ISOVUE-370 76% 100ML VIAL As Ordered ONE
== END ==
LOC: M RAD 12:46
PROVIDERS: ATTEND Student in an Organized Health Care Education/Training Program
DX: C43.9 Malignant melanoma of skin, unspecified (principal)

== ENCOUNTER 2023-12-10 15:25 | Inpatient (IN) | payer OTHER ==
[~2023-12-10] VITALS: Ht 180.3 cm; Wt 109.8 kg
[2023-12-10] MEDS: COLCHICINE 0.6 MG TABLET PO SCH (00:01)
[2023-12-10] MEDS: LATANOPROST 0.005% OPHTH SOLN 2.5 ML OS SCH (00:02)
[2023-12-10] MEDS: allopurinoL 100 MG TAB PO SCH (00:03)
[~2023-12-10 15:25] MED LIST changes: -GASTROGRAFIN SOLUTION 30ML As Ordered ONE; -ISOVUE-370 76% 100ML VIAL As Ordered ONE
[2023-12-10] MEDS ORDERED: LANTINJ4 SC (16:00)
[2023-12-10] MEDS ORDERED: ISOVUE-370 76% 100ML VIAL As Ordered ONE (18:11)
[2023-12-10 18:14] LABS: BASO # 0.1 10^3/uL (0.0-0.2); BASO % 1.3 % (0.0-1.0); EOS # 0.2 10^3/uL (0.0-0.5); EOS % 4.6 % (0.0-3.0); HEMATOCRIT 45.9 % (42.0-52.0); HEMOGLOBIN 15.6 g/dl (13.5-17.5); LYMPH # 2.1 10^3/uL (1.5-5.0); LYMPH % 41.1 % (24.0-44.0); MEAN CORPUSCULAR VOLUME 88.3 fl (80.0-96.0); MONO # 0.3 10^3/uL (0.0-0.8); NEUTROPHILS # 2.5 10^3/uL (1.5-8.5); NEUTROPHILS % 47.8 % (36.0-66.0); PLATELET COUNT, AUTOMATED 161 10^3/uL (150-450); WHITE BLOOD COUNT 5.2 10^3/uL (4.0-10.0)
[2023-12-10 18:26] LABS: INR 0.92; PARTIAL THROMBOPLASTIN TIME 32.5 SECONDS (24.8-34.2); PROTHROMBIN TIME 12.1 SECONDS (12.5-14.5)
[2023-12-10] MEDS: NS 1,000 ML IV ONE (18:34)
[2023-12-10 18:45] LABS: CK-MB VALUE MASS 26.1 NG/ML (<3.6)
[2023-12-10 18:46] LABS: C REACTIVE PROTEIN QUANTITATIV < 0.40 MG/DL (<1.0)
[2023-12-10 18:48] LABS: THYROID STIMULATING HORMONE 76.262 uIU/ML (0.55-4.78)
[2023-12-10 18:49] LABS: FREE T4 0.17 NG/DL (0.89-1.76)
[2023-12-10 19:03] LABS: ALKALINE PHOSPHATASE 55 U/L (46-116); ALT/SGPT 62 U/L (7.0-40); BILIRUBIN,TOTAL 0.9 MG/DL (0.3-1.2); BLOOD UREA NITROGEN 14 MG/DL (9-23); CALCIUM LEVEL 9.2 MG/DL (8.3-10.6); CARBON DIOXIDE LEVEL 31 MMOL/L (20-31); CHLORIDE LEVEL 100 MMOL/L (98-107); CREATININE FOR GFR 1.25 MG/DL (0.70-1.30); GLOMERULAR FILTRATION RATE > 60.0 (>49); GLUCOSE, FASTING 94 MG/DL (74-106); MAGNESIUM LEVEL 1.9 MG/DL (1.8-2.4); POTASSIUM SERUM 4.2 MMOL/L (3.5-5.1); SODIUM LEVEL 137 MMOL/L (136-145); TOTAL PROTEIN 6.9 G/DL (5.7-8.2)
[2023-12-10 19:05] LABS: AST/SGOT 81 U/L (<34); CPK CREATINE PHOSPHOKINASE 1544 U/L (46-171); MB/CK RELATIVE INDEX 1.69 (< OR =4)
[2023-12-10 19:57] LABS: CK-MB VALUE MASS 24.3 NG/ML (<3.6); MB/CK RELATIVE INDEX 1.62 (< OR =4)
[2023-12-10] MEDS ORDERED: LEVOTHYROXINE 100MCG TABLET (0.1MG) PO ONE (21:00)
[2023-12-10] MEDS: LEVOTHYROXINE 50MCG TABLET (0.05MG) PO ONE (21:19)
[2023-12-10] MEDS ORDERED: DEXTROSE 50% 50ML SYRINGE IV PRN (21:30)
[2023-12-10] MEDS ORDERED: GLUCAGON INJ 1MG VIAL SC PRN (21:30)
[2023-12-10] MEDS ORDERED: GLUCOSE 4 GM CHEW PO PRN (21:30)
[2023-12-10] MEDS ORDERED: LIDO30CR18 TOP (22:42)
[2023-12-10] MEDS ORDERED: ACET-840 PO (22:42)
[2023-12-10] MEDS ORDERED: GLUC1KIT INJ (22:42)
[2023-12-10] MEDS ORDERED: NOVOINJ3 SC (22:42)
[2023-12-10] MEDS ORDERED: HOME MED LIST COMPLETE! XX SCH (22:45)
[2023-12-10] MEDS ORDERED: ALBUTEROL 90 MCG/ACT 8GM HFA INHALER INH PRN (22:50)
[2023-12-10] MEDS: NS 1,000 ML IV SCH (23:14)
[2023-12-10] MEDS: LEVEMIR (INSULIN DETEMIR) 1 UNITS/0.01ML SC SCH (23:14)
[2023-12-10 23:44] VITALS: BP 154/83; TEMP 97.6; O2SAT 95
[2023-12-11] VITALS (8 sets, daily range): BP systolic 110–164; BP diastolic 62–101; TEMP 96.9–97.6; O2SAT 94–98
[2023-12-11] MEDS: ACETAMINOPHEN TAB 650MG DOSE (2X325MG) PO PRN (00:06)
[2023-12-11] MEDS: LEVOTHYROXINE 50MCG TABLET (0.05MG) PO SCH (05:03)
[2023-12-11 06:33] LABS: CORTISOL AM 5.2 UG/DL (4.3-22.4)
[2023-12-11 06:38] LABS: ALBUMIN 3.5 G/DL (3.2-5.2); ALKALINE PHOSPHATASE 50 U/L (46-116); ALT/SGPT 54 U/L (7.0-40); AST/SGOT 66 U/L (<34); BILIRUBIN,TOTAL 0.9 MG/DL (0.3-1.2); BLOOD UREA NITROGEN 11 MG/DL (9-23); CALCIUM LEVEL 8.8 MG/DL (8.3-10.6); CARBON DIOXIDE LEVEL 30 MMOL/L (20-31); CHLORIDE LEVEL 102 MMOL/L (98-107); CREATININE FOR GFR 1.16 MG/DL (0.70-1.30); GLOMERULAR FILTRATION RATE > 60.0 (>49); GLUCOSE, FASTING 181 MG/DL (74-106); MAGNESIUM LEVEL 1.8 MG/DL (1.8-2.4); SODIUM LEVEL 137 MMOL/L (136-145); TOTAL PROTEIN 6.3 G/DL (5.7-8.2)
[2023-12-11] MEDS: ENOXAPARIN 40MG/0.4ML SYRINGE (J1650 PER 10MG) SC SCH (08:15)
[2023-12-11] MEDS: INSULIN LISPRO (NovoLOG) PER UNIT SC SCH ×2 (08:16→21:46)
[2023-12-11] MEDS: allopurinoL 300 MG TAB PO SCH (08:16)
[2023-12-11] MEDS ORDERED: COLCHICINE 0.6 MG TABLET PO SCH (09:00)
[2023-12-11] MEDS: KETOROLAC TROMETHAMINE 10 MG TAB PO PRN (11:33)
[2023-12-11] MEDS: NS 1,000 ML IV SCH (14:03)
[2023-12-11] MEDS ORDERED: LEVOTHYROXINE 50MCG TABLET (0.05MG) PO ONE (18:00)
[2023-12-12] VITALS (7 sets, daily range): BP systolic 109–168; BP diastolic 64–84; TEMP 97–98.9; O2SAT 95–98
[2023-12-12] MEDS ORDERED: LEVOTHYROXINE 100MCG TABLET (0.1MG) PO SCH (06:00)
[2023-12-12 06:50] LABS: BASO # 0.1 10^3/uL (0.0-0.2); BASO % 1.6 % (0.0-1.0); EOS # 0.2 10^3/uL (0.0-0.5); EOS % 5.5 % (0.0-3.0); HEMATOCRIT 42.2 % (42.0-52.0); HEMOGLOBIN 14.4 g/dl (13.5-17.5); LYMPH # 1.9 10^3/uL (1.5-5.0); LYMPH % 43.1 % (24.0-44.0); MEAN CORPUSCULAR HEMOGLOBIN 29.8 pg (27.0-33.0); MEAN CORPUSCULAR HGB CONC 34.1 g/dl (32.0-36.5); MEAN CORPUSCULAR VOLUME 87.2 fl (80.0-96.0); MONO # 0.3 10^3/uL (0.0-0.8); MONO % 6.2 % (2.0-8.0); NEUTROPHILS # 1.9 10^3/uL (1.5-8.5); NEUTROPHILS % 43.4 % (36.0-66.0); PLATELET COUNT, AUTOMATED 139 10^3/uL (150-450); RED BLOOD COUNT 4.84 10^6/uL (4.30-6.10); WHITE BLOOD COUNT 4.4 10^3/uL (4.0-10.0)
[2023-12-12 07:18] LABS: ALBUMIN 3.4 G/DL (3.2-5.2); ALKALINE PHOSPHATASE 50 U/L (46-116); ALT/SGPT 50 U/L (7.0-40); AST/SGOT 52 U/L (<34); BILIRUBIN,TOTAL 0.7 MG/DL (0.3-1.2); BLOOD UREA NITROGEN 9 MG/DL (9-23); CALCIUM LEVEL 8.7 MG/DL (8.3-10.6); CARBON DIOXIDE LEVEL 30 MMOL/L (20-31); CHLORIDE LEVEL 101 MMOL/L (98-107); CPK CREATINE PHOSPHOKINASE 1101 U/L (46-171); CREATININE FOR GFR 1.17 MG/DL (0.70-1.30); GLOMERULAR FILTRATION RATE > 60.0 (>49); GLUCOSE, FASTING 202 MG/DL (74-106); MAGNESIUM LEVEL 1.6 MG/DL (1.8-2.4); POTASSIUM SERUM 4.4 MMOL/L (3.5-5.1); SODIUM LEVEL 136 MMOL/L (136-145); TOTAL PROTEIN 5.9 G/DL (5.7-8.2)
[2023-12-12] MEDS: MAG SULF 1GM/100ML (MAG RUN) 1 GM in IV 1 EA IV ONE (14:03)
[2023-12-13] VITALS: BP 127/88; TEMP 97.5; O2SAT 100
[2023-12-13 04:00] VITALS: BP 128/81; TEMP 97; O2SAT 95
[2023-12-13 05:03] LABS: HEMATOCRIT 42.1 % (42.0-52.0); HEMOGLOBIN 14.5 g/dl (13.5-17.5); MEAN CORPUSCULAR HEMOGLOBIN 29.7 pg (27.0-33.0); MEAN CORPUSCULAR HGB CONC 34.4 g/dl (32.0-36.5); MEAN CORPUSCULAR VOLUME 86.3 fl (80.0-96.0); PLATELET COUNT, AUTOMATED 141 10^3/uL (150-450); RED BLOOD COUNT 4.88 10^6/uL (4.30-6.10); WHITE BLOOD COUNT 5.4 10^3/uL (4.0-10.0)
[2023-12-13] MEDS: LEVOTHYROXINE 100MCG TABLET (0.1MG) PO SCH (05:22)
[2023-12-13] MEDS ORDERED: LEVO100T5 PO (07:24)
[2023-12-13 07:46] VITALS: BP 147/85; TEMP 97.3; O2SAT 96
[2023-12-13] MEDS: predniSONE 20 MG TAB PO SCH (08:11)
== END 2023-12-13 14:38 | disposition home or self-care (01) | DRG 644 ==
LOC: M ED 15:25 → M ED INP 21:22 → M PCU 23:33
PROVIDERS: ADMIT Preventive Medicine Undersea and Hyperbaric Medicine; ATTEND Internal Medicine
DX: E03.2 Hypothyroidism due to medicaments and other exogenous substances (principal); C79.51 Secondary malignant neoplasm of bone; C77.4 Secondary and unspecified malignant neoplasm of inguinal and lower limb lymph nodes; M62.82 Rhabdomyolysis; R00.1 Bradycardia, unspecified; K21.9 Gastro-esophageal reflux disease without esophagitis; E78.5 Hyperlipidemia, unspecified; E78.1 Pure hyperglyceridemia; F43.10 Post-traumatic stress disorder, unspecified; M10.9 Gout, unspecified; J45.909 Unspecified asthma, uncomplicated; C43.71 Malignant melanoma of right lower limb, including hip; T45.1X5A Adverse effect of antineoplastic and immunosuppressive drugs, initial encounter; Z79.4 Long term (current) use of insulin; Z79.899 Other long term (current) drug therapy; Z88.8 Allergy status to other drugs, medicaments and biological substances; Z88.0 Allergy status to penicillin

== ENCOUNTER → 2024-02-28 | Outpatient (CLI) | payer OTHER ==
[~2024-02-28] MED LIST changes: +ACET-840 PO; +GLUC1KIT INJ; +LEVO100T5 PO; +LIDO30CR18 TOP; +SYNT125T
== END ==
LOC: M ONCR 12:46
PROVIDERS: ATTEND General Practice
DX: C43.71 Malignant melanoma of right lower limb, including hip (principal); C77.4 Secondary and unspecified malignant neoplasm of inguinal and lower limb lymph nodes; C79.51 Secondary malignant neoplasm of bone; Z79.4 Long term (current) use of insulin; Z79.620 Long term (current) use of immunosuppressive biologic; Z79.890 Hormone replacement therapy; Z79.899 Other long term (current) drug therapy; Z88.0 Allergy status to penicillin; Z88.1 Allergy status to other antibiotic agents; Z88.8 Allergy status to other drugs, medicaments and biological substances; Z98.890 Other specified postprocedural states

== ENCOUNTER → 2024-04-30 | Outpatient (CLI) | payer OTHER | LOC: M PLARAD 13:07 | PROVIDERS: ATTEND Internal Medicine Hematology & Oncology | DX: C43.9 Malignant melanoma of skin, unspecified (principal) | CPT/HCPCS: 78816; A9552 ==

== ENCOUNTER → 2024-05-03 | Outpatient (CLI) | payer OTHER | LOC: M PLARAD 08:45 | PROVIDERS: ATTEND Internal Medicine Hematology & Oncology | DX: C43.9 Malignant melanoma of skin, unspecified (principal) ==

== ENCOUNTER → 2024-06-24 | Outpatient (REF) ==
[~2024-06-24] MED LIST changes: +BRAF75CA PO; +MEKT15TA PO
== END ==
LOC: M PLAIMG 11:34
PROVIDERS: ATTEND Internal Medicine
DX: R06.02 Shortness of breath (principal)

== ENCOUNTER → 2024-09-13 | Outpatient (CLI) | payer OTHER ==
[~2024-09-13] MED LIST changes: +HUMA100I3 SC; +SODI15SS PO
== END ==
LOC: M RAD 07:28
PROVIDERS: ATTEND Internal Medicine Medical Oncology
DX: C43.9 Malignant melanoma of skin, unspecified (principal); N20.0 Calculus of kidney

== ENCOUNTER 2024-10-24 18:23 | Emergency (ER) | payer MEDICARE, OTHER ==
[~2024-10-24] VITALS: Ht 180.3 cm; Wt 92.3 kg
[~2024-10-24 18:23] MED LIST changes: -GLUC1KIT INJ; +GLUC1VIA14 INJ; -PRED50TA PO; +PRED50TA57 PO
[2024-10-24 20:32] LABS: KETONE, URINE AUTO RFX TRACE mg/dL (NEGATIVE); LEUKOCYTE ESTERASE UR AUTO RFX NEGATIVE (NEGATIVE); NITRITE, URINE AUTO RFX NEGATIVE (NEGATIVE); RBC, URINE AUTO RFX 0 /HPF (0-3); SQUAM EPITHELIAL CELL UR AURFX 0 /HPF (0-6); WBC, URINE AUTO RFX 1 /HPF (0-3)
[2024-10-24 20:52] LABS: BASO % 0.3 % (0.0-1.0); EOS # 0.1 10^3/uL (0.0-0.5); HEMATOCRIT 40.7 % (42.0-52.0); HEMOGLOBIN 14.4 g/dl (13.5-17.5); LYMPH # 1.8 10^3/uL (1.5-5.0); MEAN CORPUSCULAR HEMOGLOBIN 29.5 pg (27.0-33.0); MEAN CORPUSCULAR HGB CONC 35.4 g/dl (32.0-36.5); MEAN CORPUSCULAR VOLUME 83.4 fl (80.0-96.0); MONO # 0.8 10^3/uL (0.0-0.8); MONO % 7.3 % (2.0-8.0); NEUTROPHILS % 74.1 % (36.0-66.0); PLATELET COUNT, AUTOMATED 173 10^3/uL (150-450); RED BLOOD COUNT 4.88 10^6/uL (4.30-6.10); WHITE BLOOD COUNT 10.7 10^3/uL (4.0-10.0)
[2024-10-24 21:10] LABS: ALBUMIN 3.9 G/DL (3.2-5.2); BILIRUBIN,DIRECT 0.3 MG/DL (<0.4); BILIRUBIN,TOTAL 1.3 MG/DL (0.3-1.2); CREATININE FOR GFR 1.46 MG/DL (0.70-1.30); POTASSIUM SERUM 4.8 MMOL/L (3.5-5.1)
[2024-10-24] MEDS: ONDANSETRON 4MG 2ML VIAL IV ONE (21:55)
[2024-10-24] MEDS: NS (Normal Saline) 0.9% 1,000 ML IV ONE (21:55)
[2024-10-24] MEDS: KETOROLAC 30 MG/ML 1ML VIAL IV ONE (22:00)
[2024-10-24] MEDS ORDERED: ONDA-282 PO (23:18)
[2024-10-24] MEDS ORDERED: TAMS-18 PO (23:18)
[2024-10-24] MEDS ORDERED: IBUP-1022 PO (23:18)
[2024-10-24] MEDS ORDERED: HYDR-3713 PO (23:18)
[2024-10-24 23:21] VITALS: BP 129/86; TEMP 98.4; O2SAT 96
== END 2024-10-24 23:28 | disposition home or self-care (01) ==
LOC: M ED 18:23
DX: N20.0 Calculus of kidney (principal); E11.9 Type 2 diabetes mellitus without complications; Z88.0 Allergy status to penicillin; Z88.8 Allergy status to other drugs, medicaments and biological substances; Z79.1 Long term (current) use of non-steroidal anti-inflammatories (NSAID); Z79.4 Long term (current) use of insulin; Z79.51 Long term (current) use of inhaled steroids; Z79.899 Other long term (current) drug therapy
CPT/HCPCS: 36415; 74176; 76870; 80048; 80076; 81001; 83690; 85025; 93976; 96374; 96375; 99284; J1885; J2405

== ENCOUNTER 2025-02-27 06:28 | Day surgery (SDC) | payer MEDICARE, OTHER ==
[~2025-02-27] VITALS: Ht 182.9 cm; Wt 90.9 kg
[~2025-02-27 06:28] MED LIST changes: +ACET-1592 PO; -ACET1TAB37 PO; +CALC500C16 PO; -COLC0.6T47 PO; +COLC0.6T53 PO; +DOXY20TA6 PO; +GNP250TA9 PO; +HYDR-3713 PO; -IBUP-1022 PO; +IBUP600T42 PO; +ONDA-282 PO; -SYNT125T; +SYNT125T PO; +TAMS-18 PO; +TAMS1CAP17 PO
[2025-02-27] MEDS ORDERED: GLUCOSE 4 GM CHEW PO PRN (07:50)
[2025-02-27] MEDS ORDERED: LR 1,000 ML IV SCH ×2 (07:50→09:25)
[2025-02-27] MEDS ORDERED: DEXTROSE 50% 50 ML SYRINGE IV PRN (07:50)
[2025-02-27] MEDS ORDERED: LIDOCAINE 1% SDV 5 ML VIAL SC PRN (07:50)
[2025-02-27] MEDS ORDERED: GLUCAGON INJ 1 MG VIAL SC PRN (07:50)
[2025-02-27] MEDS ORDERED: GLYCOPYRROLATE INJ 0.2 MG/ML 2 ML VIAL As Ordered ONE (07:51)
[2025-02-27] MEDS ORDERED: LIDOCAINE 2% 100 MG/5 ML SDV (FOR ANES.) As Ordered ONE (07:51)
[2025-02-27] MEDS ORDERED: MIDAZOLAM INJ 2 MG/2 ML VIAL As Ordered ONE (07:51)
[2025-02-27] MEDS ORDERED: ACETAMINOPHEN 1000MG/100ML IV BAG As Ordered ONE (07:51)
[2025-02-27] MEDS ORDERED: EPINEPHrine 1 MG/10 ML SYRINGE 1.5IN As Ordered ONE (07:56)
[2025-02-27] MEDS ORDERED: D5W/0.45% SODIUM CHLORIDE 1,000 ML IV ONE (08:00)
[2025-02-27] MEDS: ceFAZolin SOD 2 GM IV ONCE IV ONE (08:28)
[2025-02-27] MEDS ORDERED: ONDANSETRON 4MG 2ML VIAL IV PRN (09:25)
[2025-02-27] MEDS ORDERED: INSULIN LISPRO (NovoLOG) PER UNIT SC PRN (09:35)
[2025-02-27] MEDS: INSULIN LISPRO (NovoLOG) PER UNIT SC PRN (09:41)
[2025-02-27 10:37] VITALS: BP 155/91; TEMP 97.6; O2SAT 98
== END 2025-02-27 10:41 | disposition home or self-care (01) ==
LOC: M SDC 06:28
PROVIDERS: ATTEND Urology
DX: N20.0 Calculus of kidney (principal); I10 Essential (primary) hypertension; K76.0 Fatty (change of) liver, not elsewhere classified; E03.9 Hypothyroidism, unspecified; C43.9 Malignant melanoma of skin, unspecified; E78.00 Pure hypercholesterolemia, unspecified; G47.30 Sleep apnea, unspecified; Z79.899 Other long term (current) drug therapy; Z79.890 Hormone replacement therapy; Z79.4 Long term (current) use of insulin; K21.9 Gastro-esophageal reflux disease without esophagitis; M10.9 Gout, unspecified; Z88.0 Allergy status to penicillin; Z88.8 Allergy status to other drugs, medicaments and biological substances
CPT/HCPCS: 50590; 74018; J0131; J0168; J0688; J1596; J1815; J2250

== ENCOUNTER → 2025-03-11 | Outpatient (CLI) | payer MEDICARE, OTHER ==
[~2025-03-11] MED LIST changes: +MIRA3350 PO; +SENN-85 PO
== END ==
LOC: M RAD 09:44
PROVIDERS: ATTEND Urology
DX: N20.0 Calculus of kidney (principal)

== ENCOUNTER → 2025-03-21 | Outpatient (REF) | payer MEDICARE, OTHER ==
[~2025-03-21] MED LIST changes: +DOXY-441 PO
== END ==
LOC: M SMT 16:57
PROVIDERS: ATTEND Physician Assistant
DX: N20.0 Calculus of kidney (principal)

== ENCOUNTER → 2025-03-24 | Outpatient (CLI) | payer MEDICARE, OTHER ==
[~2025-03-24] MED LIST changes: -DOXY-441 PO
== END ==
LOC: M PLARAD 08:16
PROVIDERS: ATTEND Internal Medicine Medical Oncology
DX: C43.8 Malignant melanoma of overlapping sites of skin (principal)
CPT/HCPCS: 78816; A9552

== ENCOUNTER 2025-03-29 11:28 | Emergency (ER) | payer MEDICARE, OTHER ==
[~2025-03-29] VITALS: Ht 182.9 cm; Wt 94.9 kg
[2025-03-29] MEDS: LIDOCAINE 1% MDV 20 ML VIAL SC ONE (13:10)
[2025-03-29] MEDS: NEOSPORIN OINT 0.9 GM PKT TOP ONE (13:19)
[2025-03-29] MEDS: TETANUS/DIPHTH/ACEL. PERTUSSIS 0.5 ML SYR IM ONE (13:20)
[2025-03-29] MEDS: DOXYCYCLINE HYCLATE 100 MG TABLET PO ONE (13:20)
[2025-03-29] MEDS ORDERED: DOXY-441 PO (13:44)
[2025-03-29 13:53] VITALS: BP 120/74; TEMP 97.7; O2SAT 95
== END 2025-03-29 13:50 | disposition home or self-care (01) ==
LOC: M ED 11:28
DX: S61.216A Laceration without foreign body of right little finger without damage to nail, initial encounter (principal); Y92.828 Other wilderness area as the place of occurrence of the external cause; Y93.9 Activity, unspecified; Y99.9 Unspecified external cause status; W26.0XXA Contact with knife, initial encounter; E11.9 Type 2 diabetes mellitus without complications; I10 Essential (primary) hypertension; E78.5 Hyperlipidemia, unspecified; Z23 Encounter for immunization; Z88.0 Allergy status to penicillin; Z88.8 Allergy status to other drugs, medicaments and biological substances; Z79.1 Long term (current) use of non-steroidal anti-inflammatories (NSAID); Z79.51 Long term (current) use of inhaled steroids; Z79.4 Long term (current) use of insulin; Z79.899 Other long term (current) drug therapy

== ENCOUNTER → 2025-05-02 | Outpatient (CLI) | payer MEDICARE, OTHER ==
[~2025-05-02] MED LIST changes: +DOXY-441 PO; +GADOXETATE DISODIUM 2.5 MMOL/10 ML VIAL ONE; +NOVALOG PUMP
== END ==
LOC: M PLAIMG 09:24
DX: C43.9 Malignant melanoma of skin, unspecified (principal)
CPT/HCPCS: 74183; A9581